=== PATIENT | female | born 1955 | race Caucasian/White ===

== ENCOUNTER → 2016-10-14 | Outpatient (CLI) | payer BC ==
[~2016-10-14] MED LIST: ATOR10TA60 PO; CYCL5TAB PO; NAPR220C4 PO; TRAM50TA PO
--- NOTE | 2016-10-14 09:58 | KCIC ---
EXAM: Lumbar spine MRI without contrast. HISTORY: Lower back pain and left lower extremity radiculopathy. TECHNIQUE: Multiplanar, multisequence magnetic resonance imaging of the lumbar spine was performed without contrast. COMPARISON: None. FINDINGS: There is mild lumbar levoscoliosis. There is mild lumbar hyperlordosis. There is no significant listhesis. There is degenerative endplate remodeling with disc space narrowing and disc desiccation predominantly along the right aspect of L3-L4, bilateral aspects of L4-L5 and left aspect of L5-S1. This corresponds with levels of sclerotic concavity. There are a few hemangiomas. There are a few endplate Schmorl's nodes. No suspicious osseous lesion is seen. The conus terminates at L1-L2. The teacher aide clerical images demonstrate a 5.5 cm cystic lesion superior to the bladder and slightly to the left of midline. At T11-T12, there is a left foraminal disc protrusion superimposed on a disc bulge and endplate remodeling. There is mild left facet arthropathy. There is mild left foraminal stenosis. At T12-L1, there is a left paracentral disc protrusion superimposed on a disc bulge and endplate remodeling. There is no stenosis. At L1-L2, there is a left paracentral disc protrusion superimposed on a disc bulge and endplate remodeling. There is no stenosis. At L2-L3, there is a broad-based shallow right paracentral disc protrusion superimposed on a disc bulge and endplate remodeling. There is minimal right foraminal stenosis. At L3-L4, there is a right posterior lateral predominant disc bulge and endplate osteophytosis superimposed on a disc bulge and endplate remodeling. There is minimal right foraminal stenosis. At L4-L5, there is a posterior central disc protrusion and annular tear superimposed on a right posterior lateral predominant disc bulge and endplate osteophytosis. There is mild facet arthropathy. There is effacement of the left lateral recess and abutment of the traversing left L5 nerve root. At L5-S1, there is a left foraminal to extraforaminal disc protrusion with slight superior extrusion and annular tear superimposed on a left lateral predominant disc bulge and endplate remodeling. There is mild right and moderate left facet arthropathy. There is [id number] left foraminal stenosis with deviation of the exiting left L5 nerve root. IMPRESSION: 1. Multilevel degenerative change within the lumbar spine, described in detail above. This is most significant at L5-S1, resulting in mild to moderate left foraminal stenosis with deviation of the exiting left L5 nerve root. There is also effacement of the left lateral recess and abutment of the traversing left L5 nerve root at L4-L5. 2. Lumbar scoliosis. 3. 5.5 cm cystic lesion superior to the body to the left of midline, possibly ovarian or paraovarian in etiology. Correlate with a pelvic sonogram. Electronically signed by: Cassie Covington MD (10/14/2016 9:54 AM)
== END | disposition home or self-care (01) ==
LOC: KCIC MRI 08:58
PROVIDERS: ATTEND Physician Assistant
DX: M41.86 Other forms of scoliosis, lumbar region (principal); M48.07 Spinal stenosis, lumbosacral region
CPT/HCPCS: 72148